=== PATIENT | female | born 1980 | race Caucasian/White ===

== ENCOUNTER → 2016-06-30 | Outpatient (CLI) | payer BC, OTHER ==
[2016-05-16 21:20] VITALS: BP 117/57
[~2016-06-30] MED LIST: HYDR-2666 PO; ONDA4TAB10 SL
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
== END | disposition home or self-care (01) ==
LOC: RAD 09:55
PROVIDERS: ATTEND Surgery
DX: M54.9 Dorsalgia, unspecified (principal)
CPT/HCPCS: 72100